=== PATIENT | female | born 1945 ===

== ENCOUNTER 2018-07-27 11:00 | Inpatient (IN) | payer OTHER ==
[~2018-07-27] VITALS: Ht 154.9 cm; Wt 68.0 kg
[2018-08-28] MEDS ORDERED: LOSARTAN-HCTZ1 EAC1 PO (12:16)
[2018-08-28] MEDS ORDERED: METHOTREXATE2.5 MG PO (12:17)
[2018-08-28] MEDS ORDERED: GABAPENTIN300 MG PO (12:17)
[2018-09-01] MEDS ORDERED: ULTRACET PO (14:57)
[2018-09-01] MEDS ORDERED: MIRALAX17 GM PO (14:57)
[2018-09-02] MEDS ORDERED: NEURONTIN300 MG PO (07:07)
== END 2018-09-02 09:15 | disposition home or self-care (01) | DRG 355 ==
LOC: SURH 08-28 10:00 → O/R 08-31 05:42 → SURH 08-31 05:42
PROVIDERS: ADMIT Surgery
PROC: 0KXL0Z6 Transfer Left Abdomen Muscle, Transverse Rectus Abdominis Myocutaneous Flap, Open Approach (ICD-10-PCS; 2018-08-31)
PROC: 0KXK0Z6 Transfer Right Abdomen Muscle, Transverse Rectus Abdominis Myocutaneous Flap, Open Approach (ICD-10-PCS; 2018-08-31)
PROC: 0WUF4JZ Supplement Abdominal Wall with Synthetic Substitute, Percutaneous Endoscopic Approach (ICD-10-PCS; principal; 2018-08-31 07:00)
DX: K43.0 Incisional hernia with obstruction, without gangrene (principal); I10 Essential (primary) hypertension; M06.89 Other specified rheumatoid arthritis, multiple sites; R26.89 Other abnormalities of gait and mobility